=== PATIENT | female | born 1995 | race Caucasian/White ===

== ENCOUNTER 2018-05-09 08:10 | Inpatient (IN) | payer OTHER ==
[2018-05-09 09:39] VITALS: BMI 24.6
[2018-05-09] MEDS ORDERED: ELECTROLYTE-148 SOLN 1,000 ML IV ONE (10:15)
[2018-05-09] MEDS ORDERED: ELECTROLYTE-148 SOLN 1,000 ML IV SCH (10:15)
[2018-05-09] MEDS ORDERED: CITRIC ACID/SODIUM CITRATE 30 ML UNIT-DOSE CUP PO ONE (10:15)
[2018-05-09 10:21] LABS: BASO % 0.4 % (0-2.0); EOS % 0.2 % (0-4.5); HEMATOCRIT 31.6 % (32.4-45.2); HEMOGLOBIN 9.9 GM/dL (10.7-15.3); MCHC 31.2 g/dl (32.0-36.0); MEAN CELL VOLUME 73.5 fl (80-96); MONO % 3.9 % (3.8-10.2); NEUT % 76.5 % (42.8-82.8); PLATELET COUNT 257 K/MM3 (134-434); RBC 4.29 M/mm3 (3.60-5.2); WHITE BLOOD COUNT 9.1 K/mm3 (4.0-10.0)
--- NOTE | 2018-05-09 10:24 | HP ---
Past Medical History - Admission History of Present Illness: 22 yo with SIUP at 41 weeks admitted with painful contractions/early labor. Was scheduled for IOL today 2/ late term. +FM, no VB/LOF. uncomplicated. History Source: Patient, Medical Record - Past Medical History Cardiovascular: No: HTN Pulmonary: No: COPD Hepatobiliary: No: Hepatitis B, Hepatitis C ...: 2 ...Para: 1 ...Term: 1 ...: 0 ...Spon : 0 ...Induced : 0 ...Multiple Gestation: 0 ...LMP: 07/26/17 ... Weeks Gestation by Dates: 41.0 ...EDC by Dates: 05/02/18 ...EDC by Sono: 05/02/18 Heme/Onc: No: Anemia, Sickle Cell Trait Infectious Disease: No: HIV, MRSA, STD's Psych: No: Bipolar, Depression - Past Surgical History Past Surgical History: Yes: None Hx Myomectomy: No Hx Transabdominal Cerclage: No - Smoking History Smoking history: Never smoked Have you smoked in the past 12 months: No - Alcohol/Substance Use Hx Alcohol Use: No - Social History Usual Living Arrangement: Yes: With Spouse ADL: Independent History of Recent Travel: No Home Medications - Allergies Allergies/Adverse Reactions: Allergies Allergy/AdvReac Type Severity Reaction Status Date / Time No Known Allergies Allergy Verified 05/09/18 08:36 - Home Medications Home Medications: Ambulatory Orders NK [No Known Home Medication] 05/09/18 Review of Systems - Review of Systems Constitutional: reports: No Symptoms Eyes: reports: No Symptoms HENT: reports: No Symptoms Neck: reports: No Symptoms Cardiovascular: reports: No Symptoms Respiratory: reports: No Symptoms Gastrointestinal: reports: No Symptoms Genitourinary: reports: No Symptoms Breasts: reports: No Symptoms Reported Musculoskeletal: reports: No Symptoms Integumentary: reports: No Symptoms Neurological: reports: No Symptoms Endocrine: reports: No Symptoms Hematology/Lymphatic: reports: No Symptoms Psychiatric: reports: No Symptoms Physical Exam - Maternity Vital Signs: Vital Signs Temperature 98.5 F 05/09/18 08:10 Pulse Rate 83 05/09/18 08:10 Respiratory Rate 17 05/09/18 08:10 Blood Pressure 107/66 05/09/18 08:10 O2 Sat by Pulse Oximetry (%) Constitutional: Yes: Well Nourished, Calm, Mild Distress (pain when mary) Eyes: Yes: Conjunctiva Clear, EOM Intact HENT: Yes: Atraumatic, Normocephalic Neck: Yes: Supple, Trachea Midline - Abdominal Exam/OB Fundal Height: 40 Number of Fetuses: Single Presentation: Vertex Contractions: Yes Regularity: Regular Intensity: Moderate Heart Rate (range): 120 Category: I Accelerations: Uniform Decelerations: None - Physical Exam Psychiatric: Yes: Alert, Oriented Hemorrhage Risk Assessment - Risk Factors Medium Risk Factors: Yes: None High Risk Factors: Yes: None Risk Score: 1 Risk Level: Medium Risk Problem List - Problems (1) Active labor at term Code(s): [id number] - (2) Post-dates Code(s): O48.0 - POST-TERM Assessment/Plan 22 y/o with SIUP at 41 weeks early labor admit to L&D epidural prn
[2018-05-09 10:33] LABS: INR 0.9 (0.83-1.09); PROTHROMBIN TIME (PATIENT) 10.6 SEC (9.7-13.0)
[2018-05-09 10:36] LABS: ACTIVATED PTT 22.6 SECONDS (25.2-36.5)
[2018-05-09] MEDS ORDERED: FENTANYL/BUPIVACAINE/NS/PF - PCEA - 50 ML DISP.SYRIN EP ONE ×2 (10:46→15:55)
[2018-05-09] MEDS ORDERED: BUPIVACAINE HCL/PF 0.25% (2.5MG/ML) 10 ML VIAL ONE ×2 (10:48→10:55)
[2018-05-09 11:09] LABS: ANION GAP 10 MMOL/L (8-16); BLOOD UREA NITROGEN 6 mg/dL (7-18); CALCIUM 8.6 mg/dL (8.5-10.1); CHLORIDE 106 mmol/L (98-107); CO2 21 mmol/L (21-32); CREATININE 0.5 mg/dL (0.55-1.3); GLUCOSE,RANDOM 67 mg/dL (74-106); POTASSIUM 3.9 mmol/L (3.5-5.1); SODIUM 137 mmol/L (136-145)
[2018-05-09] MEDS ORDERED: TUBERCULIN PPD 5 TU/0.1ML SYRINGE (IN PATIENT USE ONLY) ID ONE (12:00)
--- NOTE | 2018-05-09 12:40 | PN ---
Ante-Partal Exam - Subjective Subjective: Pt comfortable s/p epidural Vital Signs: Vital Signs Temperature 98.5 F 05/09/18 08:10 Pulse Rate 83 05/09/18 08:10 Respiratory Rate 17 05/09/18 08:10 Blood Pressure 107/66 05/09/18 08:10 O2 Sat by Pulse Oximetry (%) Bleeding: No Headache: No Visual changes: No Right upper quadrant pain: No - Contractions Contractions: Yes Regularity: Regular Intensity: Moderate Monitor Mode: External - Exam during Labor Heart Rate: 120 Variability: Moderate Category: I Monitor Decelerations: None Exam: Vaginal Dilatation (cm): 4 Effacement (%): 70 Amniotic Membrane Status: Intact Presentation: Vertex Station: -3 (exam per nursing staff) - Assessment/Plan Assessment/Plan: Continue expectant management if no cervical change at next exam will start pitocin
[2018-05-09] MEDS ORDERED: OXYTOCIN 30 UNITS in 0.9% NS 30 UNIT/500 ML INFUS.BAG IVPB SCH (12:45)
[2018-05-09] MEDS ORDERED: OXYTOCIN 30 UNITS in 0.9% NS 30 UNIT/500 ML INFUS.BAG IVPB ONE (13:36)
[2018-05-09] MEDS ORDERED: NALOXONE HCL 0.4 MG/ML VIAL IVPUSH PRN (15:22)
[2018-05-09] MEDS ORDERED: FENTANYL/BUPIVACAINE/NS/PF - PCEA - 50 ML DISP.SYRIN EP SCH (15:30)
--- NOTE | 2018-05-09 16:31 | PN ---
Ante-Partal Exam - Subjective Subjective: Pt feeling comfortable after epidural dosing. Vital Signs: Vital Signs Temperature 98.5 F 05/09/18 08:10 Pulse Rate 77 05/09/18 14:45 Respiratory Rate 17 05/09/18 14:45 Blood Pressure 96/60 05/09/18 14:45 O2 Sat by Pulse Oximetry (%) 98 05/09/18 14:45 Bleeding: No Headache: No Visual changes: No Right upper quadrant pain: No Pain (scale 1-10): 0 - Contractions Contractions: Yes Regularity: Regular - Exam during Labor Heart Rate: 120 Variability: Moderate Category: I Exam: Vaginal Dilatation (cm): 8 Effacement (%): 100 Amniotic Membrane Status: Bulging Presentation: Vertex Station: 0 - Assessment/Plan Assessment/Plan: active labor continue active management anticipate
[2018-05-09] MEDS ORDERED: LIDOCAINE HCL 1% PRESERVATIVE FREE - 30ML VIAL ONE (17:14)
[2018-05-09] MEDS ORDERED: IBUPROFEN 600 MG TABLET (FP) PO PRN (17:35)
[2018-05-09] MEDS ORDERED: WITCH HAZEL 50% (TUCKS) 40 PAD/JAR PAD TP PRN (17:35)
[2018-05-09] MEDS ORDERED: ACETAMINOPHEN 325 MG TABLET (FP) PO PRN (17:35)
[2018-05-09] MEDS ORDERED: BENZOCAINE 28 GM HEMORRHOIDAL OINTMENT TP PRN (17:35)
[2018-05-09] MEDS ORDERED: BISACODYL 10 MG SUPP.RECT RC PRN (17:35)
[2018-05-09] MEDS ORDERED: METHYLERGONOVINE MALEATE 0.2 MG/1 ML AMP IM PRN (17:35)
[2018-05-09] MEDS ORDERED: BENZOCAINE 20% 57 GM BOTTLE TP PRN (17:35)
[2018-05-09] MEDS ORDERED: OXYTOCIN 20 UNITS in 0.9% NS 20 UNIT/1,000 ML INFUS.BAG IV ONE (17:44)
[2018-05-09] MEDS ORDERED: OXYTOCIN 20 UNITS in 0.9% NS 20 UNIT/1,000 ML INFUS.BAG IV SCH (17:45)
[2018-05-09] MEDS ORDERED: IBUPROFEN 800 MG/8 ML IJ IVPB ONE (18:00)
--- NOTE | 2018-05-09 20:08 | PN ---
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: No Infant Gender: Female Position: Left, OA Total Hours ROM (Hrs/Mins): 12 minutes - 1 Minute Total Score: 9 5 Minutes Total Score: 9 - [place] Feeding Plan Initial Plan: Exclusive throughout hospitalization Remarks - Remarks Remarks: Uncomplicated of baby from HIRAL position across intact perineum anterior shoulder (right) delivered with ease along with remainder of mouth and nose bulb suctioned cord (3vc) clamped and cut cord blood collection (for banking) and tissue sample collected cord blood collected placenta delivered in tact and spontaneously no laceration noted sponge count correct mom stable' baby to well baby nursery
[2018-05-09] MEDS: ACETAMINOPHEN 650 MG/20.3 ML ORAL SOLUTION (CUPS) PO PRN (23:36)
[2018-05-09] MEDS: IBUPROFEN 100 MG/5 ML UNIT DOSE CUPS PO PRN (23:36)
[2018-05-10] MEDS: IBUPROFEN 100 MG/5 ML UNIT DOSE CUPS PO PRN ×3 (03:36→13:48)
[2018-05-10] MEDS: ACETAMINOPHEN 650 MG/20.3 ML ORAL SOLUTION (CUPS) PO PRN ×3 (03:37→13:49)
--- NOTE | 2018-05-10 06:01 | PN ---
Post Note - Post Date of Delivery: 05/09/18 Post Day: 1 Vital Signs: Vital Signs - 24 hr 05/09/18 05/09/18 05/09/18 08:10 11:05 11:10 Temperature 98.5 F Pulse Rate 83 84 97 H Respiratory 17 17 17 Rate Blood Pressure 107/66 106/56 L 103/62 O2 Sat by Pulse 98 100 Oximetry (%) 05/09/18 05/09/18 05/09/18 11:15 11:17 11:20 Temperature Pulse Rate 97 H 87 74 Respiratory 16 17 17 Rate Blood Pressure 94/60 75/43 L 86/48 L O2 Sat by Pulse 100 100 100 Oximetry (%) 05/09/18 05/09/18 05/09/18 11:25 11:30 11:45 Temperature Pulse Rate 70 86 85 Respiratory 17 17 17 Rate Blood Pressure 108/66 97/74 97/61 O2 Sat by Pulse 100 99 99 Oximetry (%) 05/09/18 05/09/18 05/09/18 12:00 12:15 12:30 Temperature Pulse Rate 75 84 86 Respiratory 17 17 17 Rate Blood Pressure 101/64 102/71 97/65 O2 Sat by Pulse 99 100 100 Oximetry (%) 05/09/18 05/09/18 05/09/18 12:45 13:00 13:15 Temperature Pulse Rate 90 88 94 H Respiratory 17 17 17 Rate Blood Pressure 96/66 95/65 98/61 O2 Sat by Pulse 100 100 100 Oximetry (%) 05/09/18 05/09/18 05/09/18 13:30 13:45 14:00 Temperature Pulse Rate 89 88 80 Respiratory 17 17 17 Rate Blood Pressure 94/59 L 98/62 97/61 O2 Sat by Pulse 99 100 99 Oximetry (%) 05/09/18 05/09/18 05/09/18 14:15 14:30 14:45 Temperature Pulse Rate 73 76 77 Respiratory 17 17 17 Rate Blood Pressure 95/60 99/54 L 96/60 O2 Sat by Pulse 99 99 98 Oximetry (%) 05/09/18 05/09/18 05/09/18 15:00 15:15 15:30 Temperature Pulse Rate 85 78 83 Respiratory 17 17 17 Rate Blood Pressure 100/64 95/61 100/69 O2 Sat by Pulse 99 98 97 Oximetry (%) 05/09/18 05/09/18 05/09/18 15:45 16:00 16:15 Temperature Pulse Rate 79 90 95 H Respiratory 17 17 17 Rate Blood Pressure 96/58 L 90/57 L 89/55 L O2 Sat by Pulse 100 98 99 Oximetry (%) 05/09/18 05/09/18 05/09/18 16:30 16:45 17:00 Temperature Pulse Rate 67 105 H 80 Respiratory 17 18 17 Rate Blood Pressure 94/58 L 82/51 L 97/65 O2 Sat by Pulse 99 98 100 Oximetry (%) 05/09/18 05/09/18 05/09/18 17:15 17:46 18:00 Temperature 98.1 F Pulse Rate 98 H 96 H 90 Respiratory 17 17 17 Rate Blood Pressure 94/59 L 107/72 107/69 O2 Sat by Pulse 100 100 100 Oximetry (%) 05/09/18 05/09/18 05/09/18 18:15 18:30 19:00 Temperature Pulse Rate 81 70 75 Respiratory 17 17 18 Rate Blood Pressure 112/73 116/72 115/72 O2 Sat by Pulse 100 100 Oximetry (%) 05/09/18 05/10/18 20:41 02:00 Temperature 98.1 F 98.1 F Pulse Rate 89 85 Respiratory 18 18 Rate Blood Pressure 115/77 106/74 O2 Sat by Pulse Oximetry (%) Labs: Laboratory Results - last 24 hr 05/09/18 05/09/18 05/09/18 09:35 09:35 09:35 WBC 9.1 RBC 4.29 Hgb 9.9 L Hct 31.6 L MCV 73.5 L MCH 23.0 L MCHC 31.2 L RDW 16.0 H Plt Count 257 MPV 8.0 Absolute Neuts (auto) 7.0 Neutrophils % 76.5 Lymphocytes % 19.0 Monocytes % 3.9 Eosinophils % 0.2 Basophils % 0.4 Nucleated RBC % 0 PT with INR 10.60 INR 0.90 PTT (Actin FS) 22.6 L Sodium 137 Potassium 3.9 Chloride 106 Carbon Dioxide 21 Anion Gap 10 BUN 6 L Creatinine 0.5 L Creat Clearance w eGFR > 60 Random Glucose 67 L Calcium 8.6 RPR Titer Blood Type Antibody Screen 05/09/18 05/09/18 05/09/18 09:35 09:35 11:55 WBC RBC Hgb Hct MCV MCH MCHC RDW Plt Count MPV Absolute Neuts (auto) Neutrophils % Lymphocytes % Monocytes % Eosinophils % Basophils % Nucleated RBC % PT with INR INR PTT (Actin FS) Sodium Potassium Chloride Carbon Dioxide Anion Gap BUN Creatinine Creat Clearance w eGFR Random Glucose Calcium RPR Titer Nonreactive Blood Type A POSITIVE A POSITIVE Antibody Screen Negative - Subjective Subjective: No Complaints - Objective Afebrile: Yes Breast: Not engorged Abdomen: Soft, Non-tender Uterus: Fundus firm Vagina: Scant lochia Extremities: Non-tender - Assessment/Plan (1) Normal vaginal delivery Assessment: S/P Normal , Other (Anemia) Plan: Routine Care
[2018-05-10 07:30] LABS: BASO % 0.4 % (0-2.0); EOS % 0.4 % (0-4.5); HEMATOCRIT 28.2 % (32.4-45.2); HEMOGLOBIN 8.9 GM/dL (10.7-15.3); LYMPH % 17.9 % (8-40); MCH 23.3 pg (25.7-33.7); MCHC 31.6 g/dl (32.0-36.0); MEAN CELL VOLUME 73.7 fl (80-96); MEAN PLT VOLUME 8.3 fl (7.5-11.1); MONO % 5.4 % (3.8-10.2); NEUT % 75.9 % (42.8-82.8); PLATELET COUNT 238 K/MM3 (134-434); RBC 3.83 M/mm3 (3.60-5.2); WHITE BLOOD COUNT 14.3 K/mm3 (4.0-10.0)
[2018-05-10] MEDS ORDERED: FERROUS SO4 325 MG TABLET (FP) PO SCH (08:00)
[2018-05-10] MEDS ORDERED: FLU VACCINE QUAD 60 MCG/0.5 ML (MDV 18-19) IM ONE ×2 (10:00)
[2018-05-10] MEDS ORDERED: DIPHTH,PERTUSS(ACELL),TET 0.5 ML DISP.SYRIN IM ONE (10:00)
[2018-05-10] MEDS: PRENATAL VITAMINS W/ FOLIC ACID TABLET (FP) PO SCH (11:04)
[2018-05-10] MEDS: FERROUS SO4 300 MG/5 ML ORAL SOLN UNIT DOSE CUPS GT SCH ×2 (12:36→22:52)
[2018-05-10] MEDS: oxyCODONE HCL 5 MG TABLET PO PRN ×2 (17:18→20:58)
[2018-05-10] MEDS ORDERED: SENNOSIDES/DOCUSATE COMBO (SENNA PLUS) TABLET (UD) PO PRN (22:00)
[2018-05-11] MEDS: oxyCODONE HCL 5 MG TABLET PO PRN (05:26)
--- NOTE | 2018-05-11 05:31 | DS ---
Physical Exam-ACCESS DATABASE DEVELOPER Vital Signs: Vital Signs Temperature 98.2 F 05/10/18 20:28 Pulse Rate 84 05/10/18 20:28 Respiratory Rate 20 05/10/18 20:28 Blood Pressure 110/62 05/10/18 20:28 O2 Sat by Pulse Oximetry (%) 100 05/09/18 18:30 Constitutional: Yes: Well Nourished, No Distress Neck: Yes: WNL Cardiovascular: Yes: WNL, Regular Rate and Rhythm Respiratory: Yes: WNL Gastrointestinal: Yes: WNL ....Post : Yes: Uterus firm, Uterus non-tender Breast(s): Yes: WNL Musculoskeletal: Yes: WNL Extremities: Yes: WNL Edema: No Neurological: Yes: WNL, Alert, Oriented Labs: CBC, BMP 05/10/18 06:45 05/09/18 09:35 Delivery - Delivery Vaginal Delivery: No Problems Type of Anesthesia: Epidural Episiotomy/Laceration: None EBL (cc): 250 Delivery, Single - Stages of Labor Date 1st Stage Initiatied: 05/09/18 Time 1st Stage Initiated: 01:30 Date 2nd Stage Initiated: 05/09/18 Time 2nd Stage Initiated: 17:15 Date of Delivery: 05/09/18 Time of Delivery: 17:26 Time Placenta Delivered: 17:27 Placenta: Yes: Spontaneous - Condition of Tree Pruner/Container Packer Operator Present: No Infant Gender: Female Weight: 7 lb 3 oz Position: Left, OA Total Hours ROM (Hrs/Mins): 12 minutes - 1 Minute Total Score: 9 5 Minutes Total Score: 9 - Feeding Plan Initial Plan: Exclusive throughout hospitalization Discharge Summary Reason For Visit: ADMISSION OF LABOR Current Active Problems Active labor at term (Acute) Normal vaginal delivery (Acute) Post-dates (Acute) Procedures: Principal: Normal vaginal Delivery Condition: Good - Instructions Diet, Activity, Other Instructions: Physical activity Resume your normal everyday activity as tolerated no heavy lifting or exercise until seen by your surgeon. You may walk unlimited mushtaq of and climb stairs. You may resume driving the car when you feel safe and comfortable behind the wheel. No sexual activity as instructed. Wound care If you have a bandage, leave it on, and keep dry for 48-72 hours. After that time discard the outer bandage. If they are tapes on the skin under the out of bandage leave them in place. They will peel off in the next 7 to 10 days. Do Not Peel them off. You may shower the day after surgery. If there are tapes present on the skin, you may shower over them. Diet There are no dietary restrictions. Eat healthy, high-fiber foods. Drink 6 to 8 glasses of liquid each day. This will assist in keeping your bowels are regular. Pain management You may take Tylenol or acetaminophen or Ibuprofen (for example, Motrin, Advil etc.) from my pain prescription medication is ordered should be taken as prescribed for moderate to severe pain. Call MD for any of the following: Severe pain not relieved by medication Fever of 101 or higher Excessive bleeding or drainage on dressing Inability to urinate Disposition: HOME - Home Medications Comprehensive Discharge Medication List: Ambulatory Orders Ibuprofen [Motrin -] 600 mg PO QID #28 tablet 05/11/18
[2018-05-11] MEDS ORDERED: MULTIVIT-MINERALS ORAL LIQUID PO SCH (10:00)
[2018-05-11 10:13] VITALS: BP 104/62; PULSE 60; TEMP 98
[2018-05-11] MEDS: PRENATAL VITAMINS W/ FOLIC ACID TABLET (FP) PO SCH (10:14)
[2018-05-11] MEDS: FERROUS SO4 300 MG/5 ML ORAL SOLN UNIT DOSE CUPS GT SCH (10:22)
[2018-05-11] MEDS: IBUPROFEN 100 MG/5 ML UNIT DOSE CUPS PO PRN (12:28)
== END 2018-05-11 13:15 | disposition home or self-care (01) | DRG 560 ==
LOC: JLDR 08:10 → J3W 20:40
PROVIDERS: ADMIT Obstetrics & Gynecology; ATTEND Obstetrics & Gynecology
PROC: 10E0XZZ Delivery of Products of Conception, External Approach (ICD-10-PCS; principal; 2018-05-09)
DX: O48.0 Post-term pregnancy (principal); O99.02 Anemia complicating childbirth; Z3A.41 41 weeks gestation of pregnancy; Z37.0 Single live birth
CPT/HCPCS: 36415; 59409; 80048; 85025; 85610; 85730; 86593; 86850; 86900; 86901; 90688; 90715; G0008